=== PATIENT | male | born 2000 | race Two or more races ===

== ENCOUNTER 2025-05-03 12:36 | Emergency (ER) | payer OTHER ==
[~2025-05-03] VITALS: Ht 170.2 cm; Wt 86.2 kg
[2025-05-03 13:21] VITALS: TEMP 98.4
[2025-05-03 14:09] LABS: APPEARANCE,URINE CLEAR (CLEAR); BLOOD, URINE 2+ Ery/uL (NEGATIVE); LEUKOCYTE ESTERASE ,URINE NEGATIVE (NEGATIVE); NITRITE, URINE NEGATIVE (NEGATIVE); UGLUCOSE NEGATIVE (NEGATIVE)
[2025-05-03 14:25] LABS: ADD URINE CULTURE NO; SQUAMOUS EPITHELIAL CELL,UR 0-2 /HPF (None Seen)
[2025-05-03 14:57] VITALS: BP 120/75; O2SAT 100
== END 2025-05-03 14:45 | disposition home or self-care (01) ==
LOC: ER 12:44
DX: N50.812 Left testicular pain (principal)
CPT/HCPCS: 76870-TC; 81001